=== PATIENT | female | born 2000 | race African-American/Black ===

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

== ENCOUNTER 2019-12-09 03:16 | Emergency (ER) | payer MEDICAID ==
[~2019-12-09] VITALS: Ht 167.6 cm; Wt 79.0 kg
[2019-12-09] MEDS ORDERED: ACETAMINOPHEN 325MG TABLET PO ONE (05:15)
[2019-12-09 05:26] LABS: BASOPHILS % 0.9 % (0.0-2.0); EOSINOPHILS % 5.3 % (0.0-5.0); HEMATOCRIT. 38.8 % (36.0-48.0); HEMOGLOBIN. 12.3 g/dL (12.0-16.0); LYMPHOCYTES % 23.4 % (20.0-50.0); MEAN CORPUSCULAR HEMOGLOBIN 23.2 pg (28.0-32.0); MEAN CORPUSCULAR VOLUME 73.2 fL (81.0-99.0); MEAN PLATELET VOLUME 10.1 fl (7.4-10.4); NEUTROPHILS % 62.4 % (40.0-76.0); PLATELET 214 x1000/uL (130-400); RED CELL DISTRIBUTION WIDTH 17.4 % (11.6-14.6)
[2019-12-09 05:33] LABS: CHLORIDE 107 mEq/L (98-107)
[2019-12-09 05:44] LABS: B-HCG QUANTITATIVE 711 mIU/mL (<3)
[2019-12-09 07:30] VITALS: BP 94/55
== END 2019-12-09 08:50 | disposition left against medical advice (07) ==
LOC: ER 03:16
DX: O20.9 Hemorrhage in early pregnancy, unspecified (principal); Z3A.01 Less than 8 weeks gestation of pregnancy
CPT/HCPCS: 36415; 76801; 76817; 80053; 84702; 85025; 86850; 86900; 86901; 99284; Z7610